=== PATIENT | male | born 1970 | race Hispanic/Latino ===

== ENCOUNTER → 2017-08-02 | Day surgery (SDC) | payer OTHER ==
[2017-08-01 12:42] LABS: BASOPHILS # (AUTO) 0.1 (0.0-0.1); BASOPHILS % 0.6 % (0.0-1.0); EOSINOPHILS # (AUTO) 0.1 (0.0-0.4); EOSINOPHILS % 1.8 % (0.0-6.0); HEMATOCRIT 46.7 % (38.2-49.6); HEMOGLOBIN 16.2 g/dL (14.0-18.0); LYMPHOCYTES # (AUTO) 2.8 (1.0-3.2); LYMPHOCYTES % 35.5 % (18.0-39.1); MEAN CORPUSCULAR HEMOGLOBIN 28.6 pg (28-32); MEAN CORPUSCULAR HGB CONC 34.7 g/dL (31-35); MEAN CORPUSCULAR VOLUME 82.5 fL (81-99); MONOCYTES # (AUTO) 0.6 (0.2-0.8); MONOCYTES % 7.7 % (4.4-11.3); NEUTROPHILS # (AUTO) 4.2 (2.1-6.9); PLATELET COUNT 188 x10e3/uL (140-360); RED BLOOD COUNT 5.66 x10e6/uL (4.3-5.7); RED CELL DISTRIBUTION WIDTH 13.1 % (11.7-14.4)
[2017-08-01 12:52] LABS: INR 1.14; PROTHROMBIN TIME 13.7 seconds (11.9-14.5)
[2017-08-01 13:15] LABS: ALANINE AMINOTRANSFERASE 33 IU/L (0-55); ALBUMIN 3.8 g/dL (3.5-5.0); ALBUMIN/GLOBULIN RATIO 1.4 (0.8-2.0); ALKALINE PHOSPHATASE 76 IU/L (40-150); ANION GAP 12.7 mmol/L (8-16); BLOOD UREA NITROGEN 15 mg/dL (7-26); BUN/CREATININE RATIO 14 (6-25); CALCIUM 9.3 mg/dL (8.4-10.2); CARBON DIOXIDE 27 mmol/L (22-29); CHLORIDE 106 mmol/L (98-107); CHOL/HDL RATIO 3.1 (3.9-4.7); CHOLESTEROL 144 MD/DL (0-199); CREATININE, SERUM 1.11 mg/dL (0.72-1.25); EST GLOMERULAR FILTRATION RATE > 60 ML/MIN (60-); GLUCOSE 103 mg/dL (74-118); HDL CHOLESTEROL 46 MG/DL (40-60); LDL CHOLESTEROL 80 MG/DL (60-130); POTASSIUM 4.7 mmol/L (3.5-5.1); SODIUM 141 mmol/L (136-145); TRIGLYCERIDES 92 MG/DL (0-149)
[~2017-08-02] VITALS: Ht 175.3 cm; Wt 99.8 kg
[~2017-08-02] MED LIST: ASPIR 8181 MG PEG; ASPIR 8181 MG PO; ATORVASTATIN CA20 MG PO; CITALOPRAM HBR20 MG PO; FENTANYL CITRATE/PF 100MCG/2 ML INJ ONE; HEPARIN SOD (PORCINE) 1000 UNIT/ML 30ML ONE; HEPARIN SOD/SOD CHLORIDE 2,000 ML ONE; IOPAMIDOL 370 MG/ML 200 ML INFUS..BTL INJ ONE; LIDOCAINE HCL 2% LOCAL 20 ML VIAL ONE; METOPROLOL SUCC25 MG PO; MIDAZOLAM HCL 2 MG/2 ML VIAL ONE; NITROGLYCERIN/D5W 200 MCG/ML 250 ML ONE; OMEPRAZOLE40 MG PO; SODIUM CHLORIDE 0.9% 1000ML 1,000 ML ONE; TAMSULOSIN HCL0.4 MG PO; VERAPAMIL HCL 2.5 MG/ML 2 ML VIAL ONE
[2017-08-02 11:00] VITALS: BP 122/76
--- NOTE | 2017-08-02 18:29 | Operative Report ---
DATE OF PROCEDURE: August 02, 2017 PROCEDURE INDICATION: Chest pain with emotional stress. The patient with a strong family history of coronary artery disease. Symptoms concerning for unstable angina. PROCEDURES PERFORMED 1. Left heart catheterization. 2. Selective coronary angiography x2. 3. Right radial tibial band hemostasis. PROCEDURE COMPLICATIONS: None. ESTIMATED BLOOD LOSS: Less than 15 mL. PROCEDURE SUMMARY: After consent was obtained, the patient was prepped and draped in a sterile fashion and the right radial site was locally infiltrated with 2% lidocaine. Access was obtained and 5-Bolivian outer diameter slender sheath was advanced to the right radial side. Then 5-Bolivian catheters were used. All catheters were railed over a leading wire to the respective positions and the following findings were noted using TIG catheter. 1. LV pressure was 109/4 with end-diastolic pressure of 14. 2. Aortic pressure was 108/75. 3. Left main large in caliber with luminal irregularities, gives off an left anterior descending and a circumflex. 4. Left anterior descending large in caliber with luminal irregularities, gives 3 diagonals and multiples, small caliber septal perforators. 5. The circumflex has luminal irregularities and gives 3 obtuse marginals in the left posterior lateral branch. 6. The right coronary artery is dominant with luminal irregularities, gives off 2 RV marginals and a terminal right posterior descending artery and an RPLV. 7. No left ventriculogram was performed. CONCLUSION: No evidence of obstructive coronary artery disease with luminal irregularities noted throughout the coronary tree. RECOMMENDATIONS: Medical management. Wean TR band. Evaluate for alternative etiologies for chest pain. Job#: [id number] JORDYN
== END | disposition home or self-care (01) ==
LOC: CATH LAB 10:37
PROVIDERS: ATTEND Internal Medicine Cardiovascular Disease
DX: I20.9 Angina pectoris, unspecified (principal); I10 Essential (primary) hypertension; I73.9 Peripheral vascular disease, unspecified; E66.9 Obesity, unspecified; F43.9 Reaction to severe stress, unspecified; I83.813 Varicose veins of bilateral lower extremities with pain; F17.210 Nicotine dependence, cigarettes, uncomplicated; Z01.810 Encounter for preprocedural cardiovascular examination; Z01.812 Encounter for preprocedural laboratory examination; Z79.82 Long term (current) use of aspirin; Z68.33 Body mass index [BMI] 33.0-33.9, adult; Z82.49 Family history of ischemic heart disease and other diseases of the circulatory system
CPT/HCPCS: 36415; 77002; 80053; 80061; 85025; 85610; 93005; 93458; C1769; C1887; J1644; J2001; J2250; J7030; Q9967; 36140